=== PATIENT | female | born 1975 | race Caucasian/White ===

== ENCOUNTER 2018-07-22 19:10 | Emergency (ER) | payer OTHER ==
[2018-07-22] MEDS: predniSONE 20 MG TAB PO (19:46)
[2018-07-22] MEDS: IPRATROPIUM (NEB) 0.5 MG/2.5 ML AMP INH (19:53)
[2018-07-22] MEDS: ALBUTEROL 0.5% (NEB) 2.5 MG/0.5 ML AMP INH (19:53)
== END 2018-07-22 21:24 | disposition home or self-care (01) ==
LOC: E/R 19:10
DX: J45.901 Unspecified asthma with (acute) exacerbation (principal); J06.9 Acute upper respiratory infection, unspecified; R06.02 Shortness of breath; R40.2142 Coma scale, eyes open, spontaneous, at arrival to emergency department; R40.2252 Coma scale, best verbal response, oriented, at arrival to emergency department; R40.2362 Coma scale, best motor response, obeys commands, at arrival to emergency department
CPT/HCPCS: 93005; 94644; 99283-25